=== PATIENT | female | born 1995 | race Caucasian/White ===

== ENCOUNTER 2017-08-24 21:09 | Emergency (ER) | payer OTHER ==
[~2017-08-24] VITALS: Ht 175.3 cm; Wt 70.1 kg
[2017-08-24 21:14] VITALS: Ht 175.3 cm; Wt 70.1 kg
[2017-08-24] MEDS ORDERED: ACETAMINOPHEN 500 MG TAB PO STA (21:56)
--- NOTE | 2017-08-24 22:21 | DIAGNOSTIC IMAGING REPORT ---
SINGLE VIEW CHEST CLINICAL HISTORY: Cough and fever. FINDINGS: An AP, portable, upright chest radiograph is obtained. No prior studies are available for comparison at the time of dictation. The cardiomediastinal silhouette is unremarkable. The lungs and pleural spaces are clear. No pneumothorax is seen. The bony thorax is grossly intact. IMPRESSION: No active disease in the chest. Electronically signed by: Barrett Odom M.D. 08/24/2017 10:19 PM Dictated Date/Time: 08/24/2017 10:15 PM
[2017-08-24] MEDS ORDERED: DROS1TAB24 PO (22:30)
[2017-08-24] MEDS ORDERED: IBUP-1050 PO (22:30)
[2017-08-24 23:01] LABS: INFLUENZA B ANTIGEN Neg for Influ B (NEG)
[2017-08-24] MEDS ORDERED: OSELTAMIVIR PHOSPHATE 75 MG CAP PO STA (23:24)
[2017-08-24] MEDS ORDERED: OSEL75CA12 PO (23:36)
[2017-08-24 23:59] VITALS: BP 126/72; PULSE 109; TEMP 36.8; O2SAT 97
--- NOTE | 2017-08-25 01:07 | EMERGENCY ROOM VISIT NOTE ---
History Report prepared by Srinath: Adeola Walker Under the Supervision of: Dr. Nate Winston M.D. First contact with patient: 21:41 Chief Complaint: FLU LIKE SX Stated Complaint: CHILLS, BODY ACHES, FEVER, CONGESTION, SORE THROAT History of Present Illness The patient is a 22 year old female who presents to the Emergency Room with complaints of worsening flu-like symptoms starting two days ago. The patient states that the worst part is the body aches and chills. The patient complains of a productive cough, fever, and sore throat. She reports taking Ibuprofen three hours ago. The patient denies being around anyone who has been sick. The patient notes that she takes control. Pt denies LOC, headache, diaphoresis , visual changes, neck pain, chest pain, breathing difficulties, nausea, vomiting, abdominal pain, back pain, melena, hematochezia, urinary symptoms, numbness, weakness, lymphadenopathy, rash, or other complaints. Source of History: patient Onset: two days ago Position: other (global) Quality: other (flu-like) Timing: worsening Modifying Factors (Relieving): ibuprofen Associated Symptoms: + fevers, + chills, + sorethroat, + cough (productive) Note: The patient complains of body aches. Review of Systems See HPI for pertinent positives and negatives. A total of ten systems were reviewed and were otherwise negative. Past Medical & Surgical Medical Problems: (1) No known problems Family History No pertinent family history Social History Smoking Status: Never Smoker Marital Status: in relationship Housing Status: lives with significant other Occupation Status: [employer] student Current/Historical Medications Scheduled Drospirenone-Ethinyl Estradiol (Leora), 1 TAB PO HS Oseltamivir (Tamiflu), 75 MG PO BID Scheduled PRN Ibuprofen (Advil), 200-600 MG PO Q4H PRN for Pain or Fever Allergies Coded Allergies: No Known Allergies (Unverified , 08/24/17) Physical Exam Vital Signs Date Time Temp Pulse Resp B/P (MAP) Pulse Ox O2 Delivery O2 Flow Rate FiO2 08/24/17 23:59 36.8 109 18 126/72 97 08/24/17 23:13 36.8 109 18 126/72 97 Room Air 08/24/17 22:17 109 20 124/82 100 Room Air 08/24/17 21:14 38.2 116 20 142/79 98 Room Air Physical Exam GENERAL: Awake, alert, mildly ill appearing, no distress HEAD: Normocephalic, atraumatic. No edema. EYES: Normal conjunctiva. Sclera non-icteric. EARS: Right TM normal. Left TM normal. NOSE: Mild congestion. OROPHARYNX: Lips, tongue, and mucosa unremarkable. No erythema or exudate. NECK: Supple. No nuchal rigidity. FROM. No adenopathy. Negative jolt accentuation test. RESPIRATORY: CTA bilaterally. No wheezes rales or rhonchi. CARDIAC: Borderline tachycardic rate, normal rhythm. ABDOMEN: Soft, non distended. No tenderness to palpation. NEURO: Normal sensorium. SKIN: No rash or jaundice noted Medical Decision & Procedures ER Provider Diagnostic Interpretation: Radiology results as stated below per my review and radiologist interpretation: SINGLE VIEW CHEST CLINICAL HISTORY: Cough and fever. FINDINGS: An AP, portable, upright chest radiograph is obtained. No prior studies are available for comparison at the time of dictation. The cardiomediastinal silhouette is unremarkable. The lungs and pleural spaces are clear. No pneumothorax is seen. The bony thorax is grossly intact. IMPRESSION: No active disease in the chest. Electronically signed by: Barrett Odom M.D. 08/24/2017 10:19 PM Dictated Date/Time: 08/24/2017 10:15 PM Laboratory Results Test 08/24/17 22:15 Influenza Type A Antigen POS for Influ A (NEG) Influenza Type B Antigen Neg for Influ B (NEG) Laboratory results reviewed by me Medications Administered Medications (Trade) Dose Ordered Sig/Magnus Route Start Time Stop Time Status Last Admin Dose Admin Acetaminophen (Tylenol Tab) 1,000 mg NOW STAT PO 08/24/17 21:56 08/24/17 21:57 DC 08/24/17 22:16 1,000 MG Oseltamivir Phosphate (Tamiflu Cap) 75 mg NOW STAT PO 08/24/17 23:24 08/24/17 23:26 DC 08/24/17 23:49 75 MG ED Course 2154: The patient was evaluated in room B5. A complete history and physical exam was performed. 2155: Ordered Tylenol Tab 1000 mg PO. 2323: Ordered Tamiflu Cap 75 mg PO. 9: I reevaluated the patient. Discussed results and discharge instructions: She verbalized understanding and agreement. The patient is ready for discharge. Medical Decision Triage Nursing notes reviewed. The patient's presentation and history were concerning for flulike symptoms Etiologies such as viral syndrome, otitis, pharyngitis, pneumonia, urinary tract infection, sepsis, bacteremia, meningitis, as well as others were entertained. Patient was evaluated. She had a rapid strep performed and chest x-ray. These are both negative. Influenza testing was positive. The patient has influenza- like symptoms and a positive test. She was treated with Tamiflu. Patient was reassessed and was doing well. Patient was also given Tylenol. I discussed conservative management. The patient was given a school 3 days. Return instructions were outlined. By the evaluation outlined above other emergent etiologies such as those listed in the differential, as well as others, were deemed relatively unlikely. The patient was educated about the findings as listed above. All questions were answered and the patient was pleased with the treatment. Return instructions were outlined and the patient was discharged in stable condition. The patient was referred to [facility] for follow-up for a recheck of the current condition. Medication Reconcilliation Current Medication List: was personally reviewed by me Blood Pressure Screening Patient's blood pressure: Normal blood pressure Blood pressure disposition: Did not require urgent referral Impression Primary Impression: Influenza Scribe Attestation The scribe's documentation has been prepared under my direction and personally reviewed by me in its entirety. I confirm that the note above accurately reflects all work, treatment, procedures, and medical decision making performed by me. Departure Information Dispostion Home / Self-Care Prescriptions Oseltamivir (Tamiflu) 75 Mg Cap 75 MG PO BID, #9 CAP Prov: Nate Winston MD 08/24/17 Referrals No Doctor, Assigned (PCP) Forms HOME CARE DOCUMENTATION FORM, IMPORTANT VISIT INFORMATION Patient Instructions My [facility] Additional Instructions Tamiflu 75 mg twice daily for 10 total doses. Acetaminophen(Tylenol) may be used for fever or pain. Use 1000mg every six hours as needed. Avoid using more than 4000mg in a 24 hour period. (AND/OR) Ibuprofen(Motrin, Advil) may be used for fever or pain. Use 600mg every six hours as needed. Take with food. Avoid using more than 2400mg in a 24 hour period. Do not use 2400mg per day for more than three consecutive days without physician direction. Prolonged inappropriate use can lead to stomach upset or ulcers. Wash your hands after nose blowing, sneezing, or coughing. Most germs are spread through contact, therefore improper hygiene may result in your close contacts and loved ones becoming ill just like you. Return to the ER for severe headache, neck stiffness, chest pain, difficulty breathing, fevers, vomiting, worsening of your condition, or as needed. Follow up with [facility] this week for a recheck of your current condition.
== END 2017-08-24 23:55 | disposition home or self-care (01) ==
LOC: C.EDB 21:11
DX: J10.1 Influenza due to other identified influenza virus with other respiratory manifestations (principal)